=== PATIENT | male | born 1930 | race Caucasian/White ===

== ENCOUNTER 2016-05-25 12:55 | Emergency (ER) | payer MEDICARE ==
--- NOTE | ~2016-05-25 | CR63 ---
[facility] A Service of [facility] RADIOLOGY TEXT RESULTS PATIENT: SERGE GIFFORD LOCATION: [facility] : 31 UNIT #: [id number] AGE: [address]: Mahesh Nails MD SEX: M ORDER DR: [id number] [facility] [address] [place], [place] [address] [id number] E MR#: [id number] Acc #: [id number] NAME: SERGE GIFFORD : 1930 SEX: M STUDY DATE/TIME: 05/25/2016 13:22 UNIT: [facility] ROOM: STUDY DESCRIPTION: CR Chest 2 View Attending Physician: Mahesh Nails M.D. Ordering Physician: Mahesh Nails M.D. Primary Care Physician: Renzo López M.D. MEDICAL IMAGING REPORT This report is preliminary unless electronic signature is present EXAM Chest x-ray 05/25/2016. HISTORY 85-year-old male in the ED with wrist pain and shortness of air after a fall today prior to arrival. TECHNIQUE AP and lateral upright chest series. FINDINGS Exam shows no definite active disease in the chest. 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 No visible pneumothorax, pulmonary consolidation or pleural effusion. Mild cardiomegaly is stable. IMPRESSION 1. No active disease. 2. 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 Dictated by... Jose Vizcarra M.D. THIS IS AN ELECTRONICALLY VERIFIED REPORT Jose Vizcarra M.D. at 05/26/2016 8:40 AM JAY/koko TD: 05/25/2016 20:01 [facility] A Service of [facility] RADIOLOGY TEXT RESULTS PATIENT: SERGE GIFFORD LOCATION: [facility] : 31 UNIT #: [id number] AGE: [address]: Mahesh Nails MD SEX: M ORDER DR: JOB #: [id number] MEDICAL IMAGING REPORT COPY
--- NOTE | ~2016-05-25 | CR281 ---
[facility] A Service [facility] RADIOLOGY TEXT RESULTS PATIENT: SERGE GIFFORD LOCATION: [facility] : 31 UNIT #: [id number] AGE: [address]: Mahesh Nails MD SEX: M ORDER DR: [id number] [facility] [address] [place], [place] [address] [id number] E MR#: [id number] Acc #: [id number] NAME: SERGE GIFFORD : 1930 SEX: M STUDY DATE/TIME: 05/25/2016 13:25 UNIT: [facility] ROOM: STUDY DESCRIPTION: CR Wrist Min 3 View Lt Attending Physician: Mahesh Nails M.D. Ordering Physician: Mahesh Nails M.D. Primary Care Physician: Renzo López M.D. MEDICAL IMAGING REPORT This report is preliminary unless electronic signature is present EXAM Left wrist series 05/25/2016 HISTORY 85-year-old male in the ED with left wrist pain after a fall today. TECHNIQUE Three-view left wrist series. FINDINGS The examination shows a comminuted, nondisplaced, intraarticular fracture of the distal radius with mild dorsal angulation. There is also a nondisplaced ulnar styloid fracture. Carpal wrist is negative, with the exception of severe degenerative arthropathy at the first CMC joint. Soft tissue swelling surrounds the wrist. IMPRESSION 1. Comminuted intraarticular fracture of the distal radius with mild dorsal angulation. 2. Ulnar styloid fracture. 3. Soft tissue swelling. 4. 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 Dictated by... Jose Vizcarra M.D. THIS IS AN ELECTRONICALLY VERIFIED REPORT Jose Vizcarra M.D. at 05/26/2016 8:40 AM JAY/koko [facility] A Service of [facility] RADIOLOGY TEXT RESULTS PATIENT: SERGE GIFFORD LOCATION: [facility] : 31 UNIT #: [id number] AGE: [address]: Mahesh Nails MD SEX: M ORDER DR: TD: 05/25/2016 20:04 JOB #: [id number] MEDICAL IMAGING REPORT COPY
--- NOTE | ~2016-05-25 | CT71 ---
[facility] A Service [facility] RADIOLOGY TEXT RESULTS PATIENT: SERGE GIFFORD LOCATION: [facility] : 31 UNIT #: [id number] AGE: [address]: Mahesh Nails MD SEX: M ORDER DR: [id number] [facility] [address] [place], [place] [address] [id number] E MR#: [id number] Acc #: [id number] NAME: SERGE GIFFORD : 1930 SEX: M STUDY DATE/TIME: 05/25/2016 13:12 UNIT: [facility] ROOM: STUDY DESCRIPTION: CT Head Wo Contrast Attending Physician: Mahesh Nails M.D. Ordering Physician: Mahesh Nails M.D. Primary Care Physician: Renzo López M.D. MEDICAL IMAGING REPORT This report is preliminary unless electronic signature is present EXAM CT head, noncontrast, 05/25/2016 HISTORY 85-year-old male in the ED after head injury. Fell today, striking head. Pain and soft tissue laceration on the left. TECHNIQUE CT examination of the head without IV contrast. This CT exam was performed with one or more of the following radiation dose reduction techniques: automatic exposure control, adjustment of mA and/or kV according to patient size, and iterative reconstruction. FINDINGS No acute intracranial abnormality is identified, there is no visible skull fracture. Left supraorbital scalp contusion is noted. Moderate generalized cerebral atrophy. Diffuse low-attenuation white matter changes are nonspecific but likely related to chronic small vessel disease. These changes are stable since 08/03/2015. No evidence of intracranial hemorrhage, mass, mass effect, acute cerebral edema or progressive ventricular enlargement. IMPRESSION 1. No acute intracranial abnormality. 2. Left supraorbital scalp contusion. No visible skull fracture. 3. Stable diffuse chronic changes as noted above. 4. No change since 08/03/2015. [facility] A Service [facility] RADIOLOGY TEXT RESULTS PATIENT: SERGE GIFFORD LOCATION: [facility] : 31 UNIT #: [id number] AGE: [address]: Mahesh Nails MD SEX: M ORDER DR: Dictated by... Jose Vizcarra M.D. THIS IS AN ELECTRONICALLY VERIFIED REPORT Jose Vizcarra M.D. at 05/26/2016 8:40 AM RGW/koko TD: 05/25/2016 19:52 JOB #: [id number] MEDICAL IMAGING REPORT COPY
[~2016-05-25 12:55] MED LIST: AMIODARONE; AMLODIPINE BESYL5 MG PO; APRESOLINE PO; ASPIRIN PO; ASPIRINEC PO; AZOR; AZOR PO; CALCIUM +D & M1 EACH PO; CAPTOPRIL PO; CENTRUM SILVER PO; CLONIDINE PO; COREG CR PO; COREG CR80 MG PO; COREG PO; FLOMAX0.4 MG PO; GLUCOVANCE 5/501 TA1 PO; HCTZ PO; JANUVIA100 MG PO; K-DUR20 ME1 PO; KCL PO; LANTUS100 U/ML SUBQ; LASIX PO; LISINOPRIL PO; LYRICA PO; MICRO-K PO; MULTIVITAMIN FOR MEN PO; NEXIUM PO; NOVOLOG100 U/ML SUBQ; PLAVIX PO; PRAVASTATIN SOD40 MG PO; TOPROL XL PO; VICODIN 5/500 T1 TAB PO; WALGREENS PHARMACY; ZESTORETIC 20/11 TA1 PO; ZESTORETIC 20/11 TAB PO; ZOCOR PO
[2016-08-08] MEDS ORDERED: ZESTORETIC 20-1 EAC1 PO (07:36)
[2016-08-08] MEDS ORDERED: AMIODARONE HCL200 MG PO (07:38)
[2016-08-08] MEDS ORDERED: COREG6.25 MG PO (07:38)
[2016-08-08] MEDS ORDERED: CENTRUM SILVER PO (07:39)
[2016-08-08] MEDS ORDERED: MOVANTIK25 MG PO (07:40)
[2016-08-08] MEDS ORDERED: ASPIRIN81 MG PO (09:26)
[2016-08-08] MEDS ORDERED: HYDRALAZINE HC100 MG PO (09:27)
[2016-08-08] MEDS ORDERED: K-DUR20 ME2 PO (09:27)
[2016-08-08] MEDS ORDERED: JANUMET 50-5001 EACH PO (09:27)
[2016-08-08] MEDS ORDERED: GLIMEPIRIDE1 M1 PO (09:28)
[2016-08-08] MEDS ORDERED: LASIX PO (09:28)
[2016-08-08] MEDS ORDERED: ZYLOPRIM100 MG PO (09:29)
[2016-08-08] MEDS ORDERED: ELIQUIS2.5 MG PO (09:30)
[2016-08-08] MEDS ORDERED: DILTIAZEM 24HR120 M1 PO (09:30)
[2016-08-08] MEDS ORDERED: ESCITALOPRAM OX10 MG PO (15:12)
== END 2016-05-25 13:59 | disposition home or self-care (01) ==
LOC: CED 12:55
DX: S52.572A Other intraarticular fracture of lower end of left radius, initial encounter for closed fracture (principal); S52.615A Nondisplaced fracture of left ulna styloid process, initial encounter for closed fracture; S01.112A Laceration without foreign body of left eyelid and periocular area, initial encounter; I11.0 Hypertensive heart disease with heart failure; I50.9 Heart failure, unspecified; I48.91 Unspecified atrial fibrillation; E78.5 Hyperlipidemia, unspecified; M19.90 Unspecified osteoarthritis, unspecified site; E11.9 Type 2 diabetes mellitus without complications; Z86.73 Personal history of transient ischemic attack (TIA), and cerebral infarction without residual deficits; Z79.82 Long term (current) use of aspirin; Z79.899 Other long term (current) drug therapy; Z87.891 Personal history of nicotine dependence; W01.0XXA Fall on same level from slipping, tripping and stumbling without subsequent striking against object, initial encounter; Y92.009 Unspecified place in unspecified non-institutional (private) residence as the place of occurrence of the external cause
CPT/HCPCS: 29125; 70450; 71020; 73110; 99284

== ENCOUNTER 2016-06-24 21:18 | Emergency (ER) | payer MEDICARE ==
--- NOTE | ~2016-06-24 | CT57 ---
[facility] A Service of [facility] RADIOLOGY TEXT RESULTS PATIENT: SERGE GIFFORD LOCATION: [facility] : 31 UNIT #: [id number] AGE: [address]: Elie Rodriguez SEX: M ORDER DR: [id number] [address] [address] [id number] E MR#: [id number] Acc #: [id number] NAME: SERGE GIFFORD : 1930 SEX: M STUDY DATE/TIME: 06/24/2016 21:15 UNIT: [facility] ROOM: STUDY DESCRIPTION: CT Chest Wo Cont Attending Physician: Elie Rodriguez P.A.-C. Ordering Physician: Elie Rodriguez P.A.-C. Primary Care Physician: Renzo López M.D. MEDICAL IMAGING REPORT This report is preliminary unless electronic signature is present. EXAM CT chest without IV contrast, 06/24/2016 COMPARISON September 22, 2007 INDICATION 85-year-old male with left rib pain after falling today. Patient reports falling 6 weeks ago as well. TECHNIQUE This CT exam was performed with one or more of the following radiation dose reduction techniques: automatic exposure control, adjustment of mA and/or kV according to patient size, and iterative reconstruction. FINDINGS Axial CT imaging of the chest was performed without IV contrast. Coronal sagittal reformats were constructed. Lack of IV contrast and evaluation of vasculature and adenopathy. For findings below the diaphragm please see separate report of CT abdomen and pelvis on the same date. No significant subcutaneous hematoma. There is an enlarging, partly cystic structure in the right anterior mediastinum measuring up to 9.2 cm x 6.6 x 12.6 cm. It appears to be associated with a more solid appearing nodular density which also has increased in size measuring 3 cm x 1.8 cm x 3.2 cm. There are dense multivessel coronary artery calcifications. There is mild cardiomegaly. There is calcification at the level of the mitral valve. There is normal caliber of the pulmonary artery and thoracic aorta. There are calcified mediastinal lymph nodes. Pretracheal location is 1.5 cm apparent fat-containing or cystic lesion which is stable to diminished in size from 2007 of uncertain clinical significance. No pleural effusion, STS. [facility] A Service of [facility] RADIOLOGY TEXT RESULTS PATIENT: SERGE GIFFORD LOCATION: [facility] : 31 UNIT #: [id number] AGE: [address]: Elie Rodriguez PAC SEX: M ORDER DR: pneumothorax or acute airspace disease. There are calcified granulomas throughout both lungs. There is band-like atelectasis in the right upper and middle lobes which is secondary to compression by the enlarging partly cystic partly solid mass in the anterior mediastinum. Airways are widely patent. Degenerative changes at the left glenohumeral and acromioclavicular joint. 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 There are subacute appearing fractures of the left third anterior rib, and fifth anterior rib as well as the sixth through eighth anterior ribs as well as the ninth lateral rib. Acute or subacute 25% anterior compression deformity of the T11 vertebral body is also noted. There is no retropulsion of bone fragments. IMPRESSION 1. 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 There are also multiple left-sided subacute rib fractures as described in the body of the report. These are also described on the reported CT abdomen and pelvis performed today. There is no evidence of associated pneumothorax or acute airspace disease. 2. There is an enlarging complex mass in the right anterior mediastinum which is now having mass effect on the right lung resulting in atelectasis as described in the body of the report. This mass has partly simple fluid but has a solid component measuring 3.0 cm x 1.8 cm x 3.2 cm, enlarged from 2008. In fact, both cystic and solid components have increased in size since that time. Differential diagnosis would include a thymic cyst or cystic thymoma or possibly other neoplasm of thymic origin. Germ cell tumor is thought less likely but not entirely excluded. It appears this finding has been previously evaluated with PET CT and this did not demonstrate significant metabolic activity. Given the slow growth over 9 years it would favor a benign process but one could consider repeat PET CT or postcontrast evaluation to exclude significant enhancement. 3. Moderate cardiomegaly with diffuse calcification of the mitral valve and multivessel coronary artery calcification. 4. Stable cystic appearing nodule in the pretracheal location measuring up to 1.5 cm, of uncertain etiology and favored to be benign. It may somehow be related to the larger growing lesion in the anterior mediastinum. 5. Anterior compression fracture with 25% height loss of the T11 vertebral body. This may be acute to subacute. Clinical correlation recommended. Dictated by... Kiran Villagomez M.D. THIS IS AN ELECTRONICALLY VERIFIED REPORT Kiran Villagomez M.D. at 06/27/2016 10:15 AM [facility] A Service of [facility] RADIOLOGY TEXT RESULTS PATIENT: SERGE GIFFORD LOCATION: [facility] : 31 UNIT #: [id number] AGE: [address]: Elie Rodriguez PAC SEX: M ORDER DR: GLADYS/shannan TD: 06/25/2016 05:11 JOB #: [id number] MEDICAL IMAGING REPORT Page 1 of 1
--- NOTE | ~2016-06-24 | CT4 ---
[facility] A Service of [facility] RADIOLOGY TEXT RESULTS PATIENT: SERGE GIFFORD LOCATION: [facility] : 31 UNIT #: [id number] AGE: [address]: Elie Rodriguez SEX: M ORDER DR: [id number] [place] [id number] E MR#: [id number] Acc #: [id number] NAME: SERGE GIFFORD : 1930 SEX: M STUDY DATE/TIME: 06/24/2016 21:15 UNIT: [facility] ROOM: STUDY DESCRIPTION: CT Abd and Pelv Wo Cont Attending Physician: Elie Rodriguez P.A.-C. Ordering Physician: Elie Rodriguez P.A.-C. Primary Care Physician: Renzo López M.D. MEDICAL IMAGING REPORT This report is preliminary unless electronic signature is present. EXAM CT abdomen and pelvis without IV contrast, 06/24/2016 COMPARISON August 05, 2015 and whole-body PET/CT dated January 26, 2007. INDICATION 85-year-old male with left upper quadrant abdominal pain after falling today. TECHNIQUE This CT exam was performed with one or more of the following radiation dose reduction techniques: automatic exposure control, adjustment of mA and/or kV according to patient size, and iterative reconstruction. FINDINGS Axial CT imaging of the abdomen and pelvis was performed without IV contrast. Coronal sagittal reformats were constructed. Lack of IV contrast limits evaluation of adenopathy, vasculature and viscera. For findings above the diaphragm please see separately dictated report of CT chest on the same date. No significant subcutaneous hematoma. Diffuse osteopenia. Mild osteoarthritis of both sacroiliac joints. Mild multilevel degenerative facet disease of the lumbar spine. There is a chronic nonunited fracture of the right ninth posterior rib. There are subacute fractures of the left fifth, sixth, seventh, eighth, ninth and tenth anterolateral ribs. There is dextroscoliosis of the lumbar spine. There is acute to subacute appearing compression fracture at the anterior-superior corner of the T11 vertebral body, new from July 2015. There is approximately 25% anterior height loss. There is no retropulsion of bone fragment in the spinal canal. [facility]. [facility] A Service of [facility] & [facility] RADIOLOGY TEXT RESULTS PATIENT: SERGE GIFFORD LOCATION: [facility] : 31 UNIT #: [id number] AGE: [address]: Elie Rodriguez SEX: M ORDER DR: The unenhanced liver, gallbladder, spleen, and adrenal glands are unremarkable. There is fatty replacement of the pancreas. There is grossly stable nonspecific bilateral perinephric stranding. There is no hydronephrosis or hydroureter. Urinary bladder is unremarkable. No ureteral calculi. There is a nonobstructive right renal calculus. Prostate gland is unremarkable. No evidence of bowel obstruction. There is sigmoid diverticulosis and left colonic diverticulosis without evidence of acute diverticulitis. There is a moderate diffuse colonic stool burden. The appendix is not definitely seen. No secondary findings to suggest an acute appendicitis. No free fluid or pneumoperitoneum. There is diffuse calcification of the abdominal aorta with extension calcifications involve the origins of the right renal artery, celiac artery and superior mesenteric artery. Calcifications of the bilateral iliac and femoral arteries. Small to moderate-sized fat-containing left inguinal hernia without evidence of inflammatory change. No significant subcutaneous hematoma. IMPRESSION 1. Please see separate report of CT chest on the same day for findings above the diaphragm. There is a chronic nonunited fracture of the right ninth posterolateral rib and there are subacute appearing fractures of the 5th through 10th left posterolateral ribs. 2. There is a compression fracture of the anterior T11 vertebral body with approximately 25% height loss. This is either subacute or possibly acute. No significant paravertebral hematoma or retropulsion of bone fragment is seen. Clinical correlation recommended. 3. Nonobstructive right renal calculus. 4. Colonic diverticulosis without evidence of acute diverticulitis. 5. Arterial calcifications of the abdomen and pelvis as well as well as the thighs as described in the body of the report. 6. Small to moderate fat-containing left inguinal hernia without evidence of inflammatory change. Dictated by... Kiran Villagomez M.D. THIS IS AN ELECTRONICALLY VERIFIED REPORT Kiran Villagomez M.D. at 06/27/2016 10:07 AM Malcolm TD: 06/25/2016 04:28 JOB #: [id number] MEDICAL IMAGING REPORT [facility] A Service of [facility] & [facility] RADIOLOGY TEXT RESULTS PATIENT: SERGE GIFFORD LOCATION: [facility] : 31 UNIT #: [id number] AGE: [address]: Elie Rodriguez PAC SEX: M ORDER DR: Page 1 of 1
[2016-06-24 21:43] LABS: URINE SOURCE CLEAN CATCH
[2016-06-24 21:45] LABS: URINE APPEARANCE CLEAR; URINE BILIRUBIN NEG (NEG); URINE BLOOD NEG (NEG); URINE COLOR YELLOW; URINE GLUCOSE 300 MG/DL (NORM); URINE KETONE NEG (NEG); URINE LEUKOCYTE ESTERASE NEG (NEG); URINE NITRATE NEG (NEG); URINE PROTEIN NEG (NEG); URINE UROBILINOGEN 0.2 MG/DL (NORM)
[2016-06-24 21:48] LABS: MICRO INDICATED? NO
[2016-08-08] MEDS ORDERED: ZESTORETIC 20-1 EAC1 PO (07:36)
[2016-08-08] MEDS ORDERED: COREG6.25 MG PO (07:38)
[2016-08-08] MEDS ORDERED: AMIODARONE HCL200 MG PO (07:38)
[2016-08-08] MEDS ORDERED: CENTRUM SILVER PO (07:39)
[2016-08-08] MEDS ORDERED: MOVANTIK25 MG PO (07:40)
[2016-08-08] MEDS ORDERED: ASPIRIN81 MG PO (09:26)
[2016-08-08] MEDS ORDERED: K-DUR20 ME2 PO (09:27)
[2016-08-08] MEDS ORDERED: JANUMET 50-5001 EACH PO (09:27)
[2016-08-08] MEDS ORDERED: HYDRALAZINE HC100 MG PO (09:27)
[2016-08-08] MEDS ORDERED: GLIMEPIRIDE1 M1 PO (09:28)
[2016-08-08] MEDS ORDERED: LASIX PO (09:28)
[2016-08-08] MEDS ORDERED: ZYLOPRIM100 MG PO (09:29)
[2016-08-08] MEDS ORDERED: DILTIAZEM 24HR120 M1 PO (09:30)
[2016-08-08] MEDS ORDERED: ELIQUIS2.5 MG PO (09:30)
[2016-08-08] MEDS ORDERED: ESCITALOPRAM OX10 MG PO (15:12)
== END 2016-06-24 23:19 | disposition home or self-care (01) ==
LOC: SED 21:18
PROVIDERS: Physician Assistant
DX: S22.42XA Multiple fractures of ribs, left side, initial encounter for closed fracture (principal); W01.0XXA Fall on same level from slipping, tripping and stumbling without subsequent striking against object, initial encounter; Y92.009 Unspecified place in unspecified non-institutional (private) residence as the place of occurrence of the external cause
CPT/HCPCS: 71250; 74176; 81003; 99284

== ENCOUNTER 2016-06-30 11:59 | Emergency (ER) | payer MEDICARE ==
[2016-08-08] MEDS ORDERED: ZESTORETIC 20-1 EAC1 PO (07:36)
[2016-08-08] MEDS ORDERED: COREG6.25 MG PO (07:38)
[2016-08-08] MEDS ORDERED: AMIODARONE HCL200 MG PO (07:38)
[2016-08-08] MEDS ORDERED: CENTRUM SILVER PO (07:39)
[2016-08-08] MEDS ORDERED: MOVANTIK25 MG PO (07:40)
[2016-08-08] MEDS ORDERED: ASPIRIN81 MG PO (09:26)
[2016-08-08] MEDS ORDERED: K-DUR20 ME2 PO (09:27)
[2016-08-08] MEDS ORDERED: HYDRALAZINE HC100 MG PO (09:27)
[2016-08-08] MEDS ORDERED: JANUMET 50-5001 EACH PO (09:27)
[2016-08-08] MEDS ORDERED: GLIMEPIRIDE1 M1 PO (09:28)
[2016-08-08] MEDS ORDERED: LASIX PO (09:28)
[2016-08-08] MEDS ORDERED: ZYLOPRIM100 MG PO (09:29)
[2016-08-08] MEDS ORDERED: ELIQUIS2.5 MG PO (09:30)
[2016-08-08] MEDS ORDERED: DILTIAZEM 24HR120 M1 PO (09:30)
[2016-08-08] MEDS ORDERED: ESCITALOPRAM OX10 MG PO (15:12)
== END 2016-06-30 18:00 | disposition home or self-care (01) ==
LOC: CED 11:59
DX: K59.00 Constipation, unspecified (principal); E11.9 Type 2 diabetes mellitus without complications; I10 Essential (primary) hypertension; Z79.82 Long term (current) use of aspirin; Z79.899 Other long term (current) drug therapy
CPT/HCPCS: 99282

== ENCOUNTER 2016-07-06 10:36 | Emergency (ER) | payer MEDICARE ==
--- NOTE | ~2016-07-06 | CR210 ---
[facility] A Service of [facility] & [facility] RADIOLOGY TEXT RESULTS PATIENT: SERGE GIFFORD LOCATION: [facility] : 31 UNIT #: [id number] AGE: [address]: Luis Rolle MD SEX: M ORDER DR: [id number] [facility] [address] [place], [place] [address] [id number] E MR#: [id number] Acc #: [id number] NAME: SERGE GIFFORD : 1930 SEX: M STUDY DATE/TIME: 07/06/2016 12:00 UNIT: [facility] ROOM: STUDY DESCRIPTION: CR Ribs Uni 2 View W PA Ch Lt Attending Physician: Luis Rolle M.D. Ordering Physician: Luis Rolle M.D. Primary Care Physician: Renzo López M.D. MEDICAL IMAGING REPORT This report is preliminary unless electronic signature is present EXAM Single view of the chest with left-sided rib views dated 07/06/2016. COMPARISON Chest 2 views dated 05/25/[address] chest without contrast dated 06/24/2016. HISTORY Left rib pain, particularly in the lower ribs after a fall yesterday. FINDINGS Frontal view of the chest was obtained. Redemonstrated is a large opacity in the right hemithorax around the right hilum, predominantly involving the right hemithorax. Refer to the CT chest which demonstrates a large right anterolateral mediastinal mass measuring 9.2 x 6.6 cm. There are scattered multiple calcified lung nodules bilaterally. No obvious pneumothorax or pleural effusion is discerned. 4 images of the frontal and oblique views of the left sided ribs in the upper and lower aspects were obtained. They do not demonstrate any obvious acute displaced fracture. Evaluation of the left lower ribs are limited due to the technique but grossly no significant abnormality is seen. IMPRESSION 1. Known large right anterolateral mass associated with the right side of the mediastinum is redemonstrated. Refer to CT chest from 06/24/2016 which demonstrated a 9.2 x 6.6 x 12.6 cm mass. 2. Multiple bilateral calcified lymph node suggestive of old granulomatous disease. 3. Evaluation of the left-sided rib views are slightly limited due to patient body habitus and technique. Grossly no obvious acute displaced fracture is identified. [facility]. [facility] A Service of [facility] RADIOLOGY TEXT RESULTS PATIENT: SERGE GIFFORD LOCATION: [facility] : 31 UNIT #: [id number] AGE: [address]: Luis Rolle MD SEX: M ORDER DR: Dictated by... Kobe Najera M.D. THIS IS AN ELECTRONICALLY VERIFIED REPORT Kobe Najera M.D. at 07/07/2016 2:14 PM CPR/tmw TD: 07/06/2016 14:04 JOB #: [id number] MEDICAL IMAGING REPORT Page 1 of 1 COPY
[2016-08-08] MEDS ORDERED: ZESTORETIC 20-1 EAC1 PO (07:36)
[2016-08-08] MEDS ORDERED: AMIODARONE HCL200 MG PO (07:38)
[2016-08-08] MEDS ORDERED: COREG6.25 MG PO (07:38)
[2016-08-08] MEDS ORDERED: CENTRUM SILVER PO (07:39)
[2016-08-08] MEDS ORDERED: MOVANTIK25 MG PO (07:40)
[2016-08-08] MEDS ORDERED: ASPIRIN81 MG PO (09:26)
[2016-08-08] MEDS ORDERED: JANUMET 50-5001 EACH PO (09:27)
[2016-08-08] MEDS ORDERED: HYDRALAZINE HC100 MG PO (09:27)
[2016-08-08] MEDS ORDERED: K-DUR20 ME2 PO (09:27)
[2016-08-08] MEDS ORDERED: GLIMEPIRIDE1 M1 PO (09:28)
[2016-08-08] MEDS ORDERED: LASIX PO (09:28)
[2016-08-08] MEDS ORDERED: ZYLOPRIM100 MG PO (09:29)
[2016-08-08] MEDS ORDERED: ELIQUIS2.5 MG PO (09:30)
[2016-08-08] MEDS ORDERED: DILTIAZEM 24HR120 M1 PO (09:30)
[2016-08-08] MEDS ORDERED: ESCITALOPRAM OX10 MG PO (15:12)
== END 2016-07-06 13:40 | disposition home or self-care (01) ==
LOC: CED 10:36
DX: K59.00 Constipation, unspecified (principal); R07.89 Other chest pain; E11.9 Type 2 diabetes mellitus without complications; E78.5 Hyperlipidemia, unspecified; I10 Essential (primary) hypertension
CPT/HCPCS: 71101; 99283

== ENCOUNTER 2016-07-14 18:42 | Emergency (ER) | payer MEDICARE ==
--- NOTE | ~2016-07-14 | CR2 ---
[facility] A Service of [facility] & [facility] RADIOLOGY TEXT RESULTS PATIENT: SERGE GIFFORD LOCATION: [facility] : 31 UNIT #: [id number] AGE: [address]: Beto Pedraza MD SEX: M ORDER DR: [id number] [facility] [address] [place], [place] [address] [id number] E MR#: [id number] Acc #: [id number] NAME: SERGE GIFFORD. : 1930 SEX: M STUDY DATE/TIME: 07/14/2016 19:18 UNIT: [facility] ROOM: STUDY DESCRIPTION: CR Abdomen Acute Series Attending Physician: Beto Pedraza M.D. Ordering Physician: Beto Pedraza M.D. Primary Care Physician: Renzo López M.D. MEDICAL IMAGING REPORT This report is preliminary unless electronic signature is present EXAM Acute abdominal series 07/14/2016 INDICATIONS 85-year-old male with constipation, abdominal pain and nausea for a week. TECHNIQUE Frontal chest and upright supine views of the abdomen were performed. COMPARISON STUDIES Correlation is made with abdomen and pelvis CT 06/24/2016. FINDINGS There is re-demonstration of an oval-shaped opacity occupying the mid and lower lung zone on the right. This has been previously better evaluated with chest CT as recently 06/24/[address] demonstrates an anterior mediastinal mass, accounting for the appearance on the chest x-ray with associated atelectasis in the right lung. Please see the prior CT for further details. Cardiac silhouette is otherwise stable. The vascularity is unremarkable. There is volume loss in the right lung and elevation of the right hemidiaphragm, unchanged. There is old healed granulomatous disease. No pneumothorax or effusion. Upright view demonstrates no free air. Moderate stool burden in the right colon. No dilated, air-filled loops of large or small bowel. No mass effect. There are vascular calcifications in the pelvis. Chronic posterior ninth rib fracture. IMPRESSION 1. The patient has a known anterior mediastinal mass on the right. This has been better characterized and assessed on prior CT scans. Please see the prior CT chest 06/24/2016 for further details. [facility] A Service of [facility] & [facility] RADIOLOGY TEXT RESULTS PATIENT: SERGE GIFFORD LOCATION: [facility] : 31 UNIT #: [id number] AGE: [address]: Beto Pedraza MD SEX: M ORDER DR: There is chronic atelectasis and volume loss in the right lung. 2. No evidence of free air. No dilated air-filled loops of large or small bowel. 3. Stool burden in the right colon suggestive of constipation. Dictated by... Redd Lundy M.D. THIS IS AN ELECTRONICALLY VERIFIED REPORT Redd Lundy M.D. at 07/15/2016 2:51 PM Isai TD: 07/15/2016 00:08 JOB #: [id number] MEDICAL IMAGING REPORT Page 1 of 1 COPY
[2016-07-14 17:29] LABS: BASOPHIL# 0.1 X10e3 (0-0.3); BASOPHIL% 0.6 % (0-2.5); EOSINOPHIL# 0.2 X10e3 (0-0.7); EOSINOPHIL% 1.7 % (0.0-7.0); HEMATOCRIT 37.1 % (38.0-50.0); HEMOGLOBIN 12.4 gm/dL (13.0-16.0); LYMPHOCYTE# 1.4 X10e3 (1.0-3.5); LYMPHOCYTE% 16.2 % (17.0-45.0); MEAN CELL VOLUME 90.4 FL (83-96); MEAN CORPUSCULAR HEMOGLOBIN 30.1 PG (28-34); MEAN CORPUSCULAR HGB CONC 33.3 g/dL (30-36); MONOCYTE% 11.5 % (3.0-12.0); NEUTROPHIL# 6.2 X10e3 (1.5-7.1); PLATELET COUNT 304 X10e3 (140-420); RED BLOOD COUNT 4.11 X10e (3.90-5.60); RED CELL DISTRIBUTION WIDTH 13.5 % (11.0-15.5); WHITE BLOOD COUNT 8.9 X10e3 (4.0-10.5)
[2016-07-14 17:32] LABS: DIFF IND NO
[2016-07-14 17:59] LABS: ALBUMIN SERUM 3.3 g/dL (3.5-5.0); BILIRUBIN, DIRECT 0.1 mg/dL (0.0-0.2); BILIRUBIN,INDIRECT 0.5 mg/dL (0.0-0.9); BILIRUBIN,TOTAL 0.6 mg/dL (0.2-2.0); BUN/CREATININE RATIO 14.44; CALCIUM SERUM 8.7 mg/dL (8.4-10.2); CREATININE SERUM 0.9 mg/dL (0.6-1.4); GLOM FILT RATE Estimated 78.2 mL/min (>60); PROTEIN TOTAL SERUM 7.1 g/dL (6.0-8.3)
[2016-07-14 18:43] LABS: URINE SOURCE CLEAN CATCH
[2016-07-14 19:02] LABS: URINE APPEARANCE CLEAR; URINE BLOOD NEG (NEG); URINE COLOR DK YELLOW; URINE GLUCOSE NEG (NEG); URINE KETONE TRACE (NEG); URINE LEUKOCYTE ESTERASE NEG (NEG); URINE NITRATE NEG (NEG); URINE PH 6.5 (5-8); URINE PROTEIN TRACE (NEG); URINE SPECIFIC GRAVITY 1.024 (1.003-1.035)
[2016-07-14 19:18] LABS: CULTURE INDICATED? NO
[2016-08-08] MEDS ORDERED: ZESTORETIC 20-1 EAC1 PO (07:36)
[2016-08-08] MEDS ORDERED: AMIODARONE HCL200 MG PO (07:38)
[2016-08-08] MEDS ORDERED: COREG6.25 MG PO (07:38)
[2016-08-08] MEDS ORDERED: CENTRUM SILVER PO (07:39)
[2016-08-08] MEDS ORDERED: MOVANTIK25 MG PO (07:40)
[2016-08-08] MEDS ORDERED: ASPIRIN81 MG PO (09:26)
[2016-08-08] MEDS ORDERED: HYDRALAZINE HC100 MG PO (09:27)
[2016-08-08] MEDS ORDERED: JANUMET 50-5001 EACH PO (09:27)
[2016-08-08] MEDS ORDERED: K-DUR20 ME2 PO (09:27)
[2016-08-08] MEDS ORDERED: GLIMEPIRIDE1 M1 PO (09:28)
[2016-08-08] MEDS ORDERED: LASIX PO (09:28)
[2016-08-08] MEDS ORDERED: ZYLOPRIM100 MG PO (09:29)
[2016-08-08] MEDS ORDERED: ELIQUIS2.5 MG PO (09:30)
[2016-08-08] MEDS ORDERED: DILTIAZEM 24HR120 M1 PO (09:30)
[2016-08-08] MEDS ORDERED: ESCITALOPRAM OX10 MG PO (15:12)
== END 2016-07-14 21:05 | disposition home or self-care (01) ==
LOC: CED 18:42
DX: K59.00 Constipation, unspecified (principal); E87.6 Hypokalemia; I11.0 Hypertensive heart disease with heart failure; E11.9 Type 2 diabetes mellitus without complications; F17.210 Nicotine dependence, cigarettes, uncomplicated; Z79.82 Long term (current) use of aspirin; Z79.899 Other long term (current) drug therapy
CPT/HCPCS: 74022; 80048; 80076; 81003; 83690; 85025; 99283

== ENCOUNTER → 2016-08-08 | Outpatient (CLI) | payer MEDICARE ==
[~2016-08-08] MED LIST changes: +AMIODARONE HCL200 MG PO; +ASPIRIN81 MG PO; +COREG6.25 MG PO; +DILTIAZEM 24HR120 M1 PO; +ELIQUIS2.5 MG PO; +ESCITALOPRAM OX10 MG PO; +GLIMEPIRIDE1 M1 PO; +HYDRALAZINE HC100 MG PO; +JANUMET 50-5001 EACH PO; +K-DUR20 ME2 PO; +MOVANTIK25 MG PO; +ZESTORETIC 20-1 EAC1 PO; +ZYLOPRIM100 MG PO
--- NOTE | ~2016-08-08 | XA230 ---
[facility] A Service of [facility] RADIOLOGY TEXT RESULTS PATIENT: SERGE GIFFORD LOCATION: CIVR : 31 UNIT #: [id number] AGE: [address]: Ashu Choi MD SEX: M ORDER DR: [id number] [facility] [address] [place], [place] [address] [id number] O MR#: [id number] Acc #: [id number] NAME: SERGE GIFFORD : 1930 SEX: M STUDY DATE/TIME: 08/08/2016 8:35 UNIT: [facility] ROOM: STUDY DESCRIPTION: XA ARIC Attending Physician: Ashu Choi M.D. Ordering Physician: Ashu Choi M.D. Primary Care Physician: Renzo López M.D. MEDICAL IMAGING REPORT This report is preliminary unless electronic signature is present EXAM Aspiration of a mediastinal cyst, date of examination is 08/08/2016. HISTORY Right paramediastinal cyst. Mr. Gifford is an 85-year-old male who has had a mediastinal cyst dating back several years to 2006. It has slowly increased in size and does have a small soft tissue component. He is referred for aspiration biopsy of the collection. TECHNIQUE The procedure, attendant risks, and options were discussed with Mr. Gifford. Ultrasound examination was performed of the right chest. The collection was identified easily by ultrasound. Skin was marked and prepped with Chlorhexidine and draped, utilizing maximal sterile barrier technique, including sterile gloves. A 5-Russian catheter was inserted, and a total of 510 mL of pale yellow serous fluid was aspirated. This was sent for cytology. Catheter was removed. A followup chest radiograph shows reexpansion of the right lung with drainage of the pleural fluid collection. Note is made of a soft tissue component deep to the fluid collection. Patient was subsequent discharged home to follow up with Dr. Choi. CONCLUSION Successful aspiration of the cystic component of the paramediastinal cyst on the right with removal of 510 mL of fluid. Dictated by... Elie Maradiaga M.D. [facility] A Service of [facility] RADIOLOGY TEXT RESULTS PATIENT: SERGE GIFFORD LOCATION: [facility] : 31 UNIT #: [id number] AGE: [address]: Ashu Choi MD SEX: M ORDER DR: THIS IS AN ELECTRONICALLY VERIFIED REPORT Elie Maradiaga M.D. at 08/08/2016 4:40 PM [place]y TD: 08/08/2016 11:34 JOB #: [id number] MEDICAL IMAGING REPORT Page 1 of 1 COPY
--- NOTE | ~2016-08-08 | CR63 ---
[facility] A Service of [facility] RADIOLOGY TEXT RESULTS PATIENT: SERGE GIFFORD LOCATION: [facility] : 31 UNIT #: [id number] AGE: [address]: Ashu Choi MD SEX: M ORDER DR: [id number] [facility] [address] [place], [place] [address] [id number] O MR#: [id number] Acc #: [id number] NAME: SERGE GIFFORD : 1930 SEX: M STUDY DATE/TIME: 08/08/2016 8:57 UNIT: [facility] ROOM: STUDY DESCRIPTION: CR Chest 2 View Attending Physician: Ashu Choi M.D. Ordering Physician: Elie Maradiaga M.D. Primary Care Physician: Renzo López M.D. MEDICAL IMAGING REPORT This report is preliminary unless electronic signature is present EXAM PA and lateral chest HISTORY Status post mediastinal cyst drainage. FINDINGS PA and lateral views of the chest are obtained and compared directly to the previous film. There has been interim aspiration of the mediastinal cyst. Continues to be some soft tissue density in the right perihilar area. Right lung is re-expanded and is clear. There is no pneumothorax. CONCLUSION Interim drainage of the right paramediastinal cyst with no pneumothorax. Dictated by... Elie Maradiaga M.D. THIS IS AN ELECTRONICALLY VERIFIED REPORT Elie Maradiaga M.D. at 08/08/2016 4:40 PM Pam TD: 08/08/2016 10:10 JOB #: [id number] MEDICAL IMAGING REPORT Page 1 of 1 COPY
[2016-08-08 06:59] LABS: HEMATOCRIT 35.5 % (38.0-50.0); HEMOGLOBIN 11.9 gm/dL (13.0-16.0); MEAN CELL VOLUME 89.7 FL (83-96); MEAN CORPUSCULAR HGB CONC 33.5 g/dL (30-36); MEAN PLATELET VOLUME 7.5 FL (6.5-11.5); RED BLOOD COUNT 3.96 X10e (3.90-5.60); RED CELL DISTRIBUTION WIDTH 14.9 % (11.0-15.5); WHITE BLOOD COUNT 5.9 X10e3 (4.0-10.5)
[2016-08-08 07:16] LABS: PARTIAL THROMBOPLASTIN TIME 28.4 SECONDS (23.5-31.3)
== END | disposition home or self-care (01) ==
LOC: CIVR 06:22
PROVIDERS: Internal Medicine
DX: J98.59 Other diseases of mediastinum, not elsewhere classified (principal); E11.9 Type 2 diabetes mellitus without complications; E05.90 Thyrotoxicosis, unspecified without thyrotoxic crisis or storm; E66.9 Obesity, unspecified; Z68.28 Body mass index [BMI] 28.0-28.9, adult; R06.02 Shortness of breath; Z87.891 Personal history of nicotine dependence; Z91.81 History of falling; Z79.01 Long term (current) use of anticoagulants; Z87.81 Personal history of (healed) traumatic fracture; Z83.3 Family history of diabetes mellitus; Z82.49 Family history of ischemic heart disease and other diseases of the circulatory system
CPT/HCPCS: 36415; 71020; 76942; 82947; 85027; 85610; 85730; 88108; 88305; J2250; J3010